=== PATIENT | male | born 1960 | race Two or more races ===

== ENCOUNTER 2018-12-24 19:18 | Emergency (ER) | payer OTHER ==
[~2018-12-24] VITALS: Ht 167.6 cm; Wt 97.5 kg
[2018-12-24 20:24] LABS: Basophils # (auto) 0.1 uL; Basophils % (auto) 0.5 % (0.0-2.0); Eosinophils # (auto) 0.3 uL; Eosinophils % (auto) 2.8 % (0.0-7.0); Hematocrit 47.8 % (41.0-53.0); Lymphocytes # (auto) 3.6 uL; Lymphocytes % (auto) 31.8 % (10.0-50.0); Mean Corpuscular Hemoglobin 30.9 pg (28.0-32.0); Mean Corpuscular Hgb Conc. 33.5 g/dL (32.0-36.0); Mean Corpuscular Volume 92.5 fL (80.0-100.0); Monocytes # (auto) 0.9 uL; Monocytes % (auto) 8.3 % (0.0-12.0); Neutrophils # (auto) 6.3 uL; Neutrophils % (auto) 56.6 % (37.0-80.0); Nucleated Red Blood Cells % 0.1 %; Platelet Count (auto) 238 10^3/uL (140-450); Red Blood Cells 5.17 10^6/uL (4.5-5.90); Red Cell Distribution Width 13.5 % (11.8-14.3); White Blood Cell 11.2 10^3/uL (4.4-10.8)
[2018-12-24 20:37] LABS: INR 0.95 (0.9-1.15); Partial Thromboplastin Time 24.9 sec (23.78-33.04); Prothrombin Time 10.2 sec (9.27-12.13)
[2018-12-24 20:44] LABS: Alanine Aminotransferase 35 U/L (16-61); Albumin 3.7 g/dL (3.4-5.0); Anion Gap 8 (5-15); Aspartate Aminotransferase 25 U/L (15-37); BUN/Creatinine Ratio 25.6; Blood Urea Nitrogen 21 mg/dL (7-18); Calcium 8.8 mg/dL (8.5-10.1); Carbon Dioxide 27 mmol/L (21-32); Chloride 102 mmol/L (98-107); GFR African American 124 mL/min; GFR Non-African American 103 mL/min; Glucose 137 mg/dL (74-106); Magnesium 2.1 mg/dL (1.6-2.6); Potassium 4.1 mmol/L (3.5-5.1); Sodium 137 mmol/L (136-145)
[2018-12-24 20:49] LABS: Alkaline Phosphatase 76 U/L (45-117); Bilirubin, Total 0.4 mg/dL (0.2-1.0); Total Protein 7.9 g/dL (6.4-8.2)
[2018-12-24 20:53] LABS: Urine Bacteria NONE SEEN /hpf (None Seen); Urine Blood Negative /uL (Negative); Urine Specific Gravity 1.019 (1.001-1.035); Urine WBC 1 /hpf (0 - 3)
[2018-12-24 20:56] LABS: Amphetamine Screen, Urine NEGATIVE (NEGATIVE); Barbiturate Scree,Urine NEGATIVE (NEGATIVE); Benzodiazephine Screen, Urine NEGATIVE (NEGATIVE); Cannabinoid Screen, Urine NEGATIVE (NEGATIVE); Cocaine Screen, Urine NEGATIVE (NEGATIVE); Opiate Scree,Urine NEGATIVE (NEGATIVE); Phencyclidine Screen, Urine NEGATIVE (NEGATIVE)
[2018-12-25 04:45] VITALS: BP 136/78
== END 2018-12-25 04:47 | disposition home or self-care (01) ==
LOC: ER 19:22
DX: G51.0 Bell's palsy (principal); E11.9 Type 2 diabetes mellitus without complications; I10 Essential (primary) hypertension; R07.9 Chest pain, unspecified
CPT/HCPCS: 36415; 70450; 71046; 80053; 80307; 81001; 83735; 83880; 84484; 85025; 85610; 85730; 93005